=== PATIENT | female | born 1995 | race Caucasian/White ===

== ENCOUNTER 2016-11-01 20:17 | Emergency (ER) | payer BC ==
[~2016-11-01] VITALS: Ht 162.6 cm; Wt 70.9 kg
[2016-11-01 20:18] VITALS: TEMP 36.8; Ht 162.6 cm; Wt 70.9 kg
[2016-11-01] MEDS ORDERED: IBUPROFEN 600 MG TAB PO STA (20:44)
--- NOTE | 2016-11-01 21:06 | DIAGNOSTIC IMAGING REPORT ---
LEFT FINGER(S) MIN 2 VIEWS ROUTINE CLINICAL HISTORY: left fifth finger and attention DIP joint trauma COMPARISON: None. DISCUSSION: Dorsal dislocation distal interphalangeal joint. No evidence for fracture. All remaining osseous structures are unremarkable. There is no evidence for soft tissue swelling. IMPRESSION: Dorsal dislocation distal interphalangeal joint Electronically signed by: Ananda Nathan M.D. 11/01/2016 9:05 PM Dictated Date/Time: 11/01/2016 9:04 PM
[2016-11-01] MEDS ORDERED: NORCO 5/325MG HOME PACK PO ONE (21:30)
--- NOTE | 2016-11-01 21:34 | EMERGENCY ROOM VISIT NOTE ---
ED Visit Note First contact with patient: 20:29 CHIEF COMPLAINT: Left finger injury this evening HISTORY OF PRESENT ILLNESS: Patient is a [id number] 21-year-old white female who presents to the emergency department today accompanied by parents for evaluation of a left fifth finger injury that she sustained this evening. 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 She was performing her uneven bar routine when she struck the left finger off of the bar awkwardly. She noted discomfort after she finished her routine. She had swelling and pain at the DIP joint. She also had a small skin architectural draftsperson on the finger pad of the left fifth finger. She was splinted by athletic training staff. She notes a moderate throbbing which she rates a 4/10. No numbness or tingling. REVIEW OF SYSTEMS: Review of systems as per HPI. All other systems reviewed were negative. At least 6 systems reviewed. PMH: Electronic medical records are reviewed and summarized as above/below. See Problem List. SOCIAL HISTORY: Patient is a college student who lives with roommates at school. Nonsmoker, denies alcohol use. PHYSICAL EXAM: Vital Signs: Reviewed Nurse's notes.CONSTITUTIONAL: Patient is a pleasant, well-appearing 21-year-old white female who is awake and alert and in no acute distress. Examination of the left fifth finger show a superficial skin tear on the finger pad. There is no active bleeding. She has a palpable deformity at the DIP joint, and is unable to flex or extend the finger. Capillary refills less than 2 seconds. She does not have any pain over the PIP joint, the proximal phalanx or the MCP. Sensation light touch is intact. EMERGENCY DEPARTMENT COURSE: The patient was medicated with ibuprofen and given an ice pack. X-ray of the left fifth finger show a dorsal dislocation of the DIP joint without associated fracture. Joint was reduced by Dr. Burris. Postreduction films showed anatomic alignment without acute associated fracture. The hand was cleansed, the wound was dressed and she was placed in a metal finger splint. I do not suspect an open dislocation, the skin injury on the palmar aspect of the finger appears to be superficial in nature and does not appear to correspond with the DIP joint. Patient was given a [email or web address] home pack. She will follow up with orthopedics when she returns back to school in [place]. She was discharged home into the care of her parents in good condition. She rated her pain a 1/10 at discharge. Problem List Surgical Problems: (1) History of orthopedic surgery Status: Resolved Current/Historical Medications Scheduled PRN Hydrocodone/Acetaminophen 5MG/325MG (Hemphill 5MG/325MG), 1-2 TABLETS PO Q4 PRN for Pain Allergies Coded Allergies: No Known Allergies (Unverified , 11/01/16) Vital Signs Date Time Temp Pulse Resp B/P Pulse Ox O2 Delivery O2 Flow Rate FiO2 11/01/16 22:20 76 18 120/72 99 11/01/16 20:18 36.8 92 18 119/75 99 Room Air Medications Administered Medications (Trade) Dose Ordered Sig/Janet Route Start Time Stop Time Status Last Admin Dose Admin Ibuprofen (Motrin Tab) 600 mg NOW STAT PO 11/01/16 20:44 11/01/16 20:46 DC 11/01/16 21:29 600 MG Acetaminophen/ Hydrocodone Bitart (Hemphill 5/325mg Home Pack) 1 homepack UD ONCE PO 11/01/16 21:30 11/01/16 21:31 DC 11/01/16 22:12 1 HOMEPACK Departure Information Impression Primary Impression: Dislocation of finger, left, closed Prescriptions Hydrocodone/Acetaminophen 5MG/325MG (Hemphill 5MG/325MG) Tab 1-2 TABLETS PO Q4 Y for Pain, #10 TAB For Initial Treatment Prov: Ayleen Crane PA 11/01/16 Referrals No Doctor, Assigned (PCP) Patient Instructions [facility] Additional Instructions Hydrocodone/Acetaminophen (Hemphill) 5/325 mg: Take 1-2 pills every four hours for breakthrough pain. Avoid alcohol, operating machinery or dangerous equipment, working on ladders or roofs, DRIVING, or situations where being under the influence may be dangerous. It is recommended to use an dxrv-nno-igjnvwa stool softener such as Colace, 100mg twice daily while taking this medication to avoid constipation. Ibuprofen(Motrin, Advil) may be used for fever or pain. Use 600mg every six hours as needed. Take with food. Avoid using more than 2400mg in a 24 hour period. Do not use 2400mg per day for more than three consecutive days without physician direction. Prolonged inappropriate use can lead to stomach upset or ulcers. This medication can be taken if you need to drive, work, or perform activities which may be dangerous when taking narcotic pain medication. (AND/OR) Acetaminophen(Tylenol) may be used for fever or pain. Use 1000mg every six hours as needed. Avoid using more than 3000mg in a 24 hour period. This medication can be taken if you need to drive, work, or perform activities which may be dangerous when taking narcotic pain medication. Ice compresses for 20 minutes at a time four times daily for 2-3 days. Use the metal finger splint at all times, may remove for bathing and wound care. Rest and elevate your injury. Continue current medications. Return to the ER immediately for any numbness, tingling, severe pain, extreme swelling in the extremity or as needed. Follow-up with orthopedics when you return to school for further care and management of your finger dislocation. Problem Qualifiers Primary Impression: Dislocation of finger, left, closed Encounter type: initial encounter Qualified Codes: S63.259A - Unspecified dislocation of unspecified finger, initial encounter
--- NOTE | 2016-11-01 21:38 | DIAGNOSTIC IMAGING REPORT ---
LEFT FINGER(S) MIN 2 VIEWS ROUTINE CLINICAL HISTORY: left fifth finger. Postreduction dislocation COMPARISON: Study earlier same date DISCUSSION: Successful reduction of the previously described dislocation of the distal interphalangeal joint. Mild soft tissue edema. No acute bony abnormality. IMPRESSION: Anatomic alignment status post closed reduction. No evidence for fracture. Electronically signed by: Ananda Nathan M.D. 11/01/2016 9:36 PM Dictated Date/Time: 11/01/2016 9:35 PM
[2016-11-01] MEDS ORDERED: HYDR-5688 PO (21:56)
[2016-11-01 22:20] VITALS: BP 120/72; PULSE 76; O2SAT 99
--- NOTE | 2016-11-01 22:33 | EMERGENCY ROOM VISIT NOTE ---
ED Visit Note First contact with patient: 20:29 I have personally evaluated and examined this patient. I agree with assessment and plan of Rochelle Crane PA-C. Left 5th digit dorsal DIP dislocation while doing gymnastics. Reduced with just gentle traction. Repeat imaging with good alignment and no fracture. Splinted and will follow up with ortho in [place].
== END 2016-11-01 22:23 | disposition home or self-care (01) ==
LOC: C.EDB 20:18 → C.EDD 22:23
DX: S63.259A Unspecified dislocation of unspecified finger, initial encounter (principal); W22.8XXA Striking against or struck by other objects, initial encounter; Y93.43 Activity, gymnastics